=== PATIENT | male | born 1960 | race Caucasian/White ===

== ENCOUNTER 2019-12-31 08:08 | Outpatient (REF) | payer BC, SELFPAY ==
[2019-12-31 22:09] LABS: BUN 16 mg/dL (7-18); CREATININE 1.03 mg/dL (0.70-1.30); Calcium 8.9 mg/dL (8.5-10.1); Calculated LDL 93 mg/dL (<100); Chloride 104 mmol/L (98-107); Cholesterol 194 mg/dL (<200); Glucose 89 mg/dL (74-106); HDL Cholesterol 42 mg/dL (40-60); Potassium 4.6 mmol/L (3.5-5.1); Sodium 141 mmol/L (136-145); Triglyceride 299 mg/dL (<150)
== END 2019-12-31 08:28 ==
LOC: NCHCN 08:08
PROVIDERS: PCP Internal Medicine; Visit Provider Internal Medicine
DX: Z00.00 Encounter for general adult medical examination without abnormal findings (principal); E78.5 Hyperlipidemia, unspecified; E66.9 Obesity, unspecified; J44.9 Chronic obstructive pulmonary disease, unspecified
CPT/HCPCS: 80048; 80061

== ENCOUNTER 2020-02-12 17:18 | Outpatient (REF) | payer BC, SELFPAY ==
[2020-02-15 13:33] LABS: COVID-19 RT-PCR Result NEGATIVE (Negative)
== END 2020-02-12 17:38 ==
LOC: NCHCN 17:18
PROVIDERS: PCP Internal Medicine; Visit Provider Nurse Practitioner Family
DX: R09.81 Nasal congestion (principal)
CPT/HCPCS: U0003

== ENCOUNTER 2021-02-09 16:29 | Outpatient (REF) | payer BC, SELFPAY ==
[2021-02-11 11:24] LABS: COVID-19 RT-PCR UVMMC Result Negative (Negative)
== END 2021-02-09 16:30 | disposition home or self-care (01) ==
LOC: NCHCN 16:29
PROVIDERS: PCP Internal Medicine; Visit Provider Family Medicine
DX: Z20.822 Contact with and (suspected) exposure to COVID-19 (principal); R50.9 Fever, unspecified; R05.8 Other specified cough
CPT/HCPCS: U0003

== ENCOUNTER 2021-04-22 15:54 | Outpatient (REF) | payer BC, SELFPAY ==
[2021-04-22 21:58] LABS: ALT 35 U/L (16-63); AST 23 U/L (15-37); Albumin 4.1 g/dL (3.4-5.0); Alkaline Phosphatase 248 U/L (46-116); Anion Gap 10.5 mmol/L (3-11); BUN 25 mg/dL (7-18); Bilirubin, Total 0.2 mg/dL (0.2-1.0); CO2 25.5 mmol/L (21.0-32.0); CREATININE 0.9 mg/dL (0.70-1.30); Calcium 8.9 mg/dL (8.5-10.1); Chloride 106 mmol/L (98-107); Cholesterol 197 mg/dL (<200); Glucose 96 mg/dL (74-106); HDL Cholesterol 36 mg/dL (40-60); Potassium 4.3 mmol/L (3.5-5.1); Sodium 142 mmol/L (136-145); Total Protein 7.4 g/dL (6.4-8.2); Triglyceride 535 mg/dL (<150)
[2021-04-22 22:10] LABS: LDL CHOLESTEROL 98 mg/dL (<100)
[2021-04-22 22:18] LABS: Bilirubin, Direct 0.1 mg/dL (0.0-0.2)
[2021-04-23 18:29] LABS: PSA, Screening 0.3 ng/mL (0.0-4.5)
== END 2021-04-22 15:55 | disposition home or self-care (01) ==
LOC: NCHCN 15:54
PROVIDERS: PCP Internal Medicine; Visit Provider Internal Medicine
DX: E78.5 Hyperlipidemia, unspecified (principal); R03.0 Elevated blood-pressure reading, without diagnosis of hypertension; E66.9 Obesity, unspecified; Z12.5 Encounter for screening for malignant neoplasm of prostate; R73.03 Prediabetes
CPT/HCPCS: 80053; 80061; 80076; 83721; 84153; 83036

== ENCOUNTER 2021-05-01 16:26 | Outpatient (REF) | payer BC, SELFPAY ==
[2021-05-01 19:59] LABS: HCT 43.9 % (40.0-50.0); HGB 13.8 g/dL (13.5-17.5); MCH 26.5 pg (27.0-33.0); MCHC 31.4 % (32.0-36.0); MCV 84.3 fL (80-95); MPV 11.2 fL (8.0-11.0); Platelet Count 204 10^3/uL (130-400); RBC 5.21 10^6/uL (4.36-5.78); RDW 14.2 % (11.8-14.1); RDW-SD 43.4 fL; WBC 10.15 10^3/uL (4.4-10.8)
[2021-05-01 20:04] LABS: GGT 42 U/L (15-85)
[2021-05-04 10:45] LABS: Hepatitis C Ab w Rflx HCV PCR Negative (Negative)
[2021-05-04 11:21] LABS: HBs Antibody, Quant 22.7 mIU/mL (See Note); Hepatitis B Surface Ab Positive (See Note)
[2021-05-04 12:08] LABS: Hepatitis B Surface Ag Negative (Negative)
== END 2021-05-01 16:27 | disposition home or self-care (01) ==
LOC: NCHCN 16:26
PROVIDERS: PCP Internal Medicine; Visit Provider Internal Medicine
DX: R03.0 Elevated blood-pressure reading, without diagnosis of hypertension (principal); R74.8 Abnormal levels of other serum enzymes; Z00.00 Encounter for general adult medical examination without abnormal findings; Z13.818 Encounter for screening for other digestive system disorders; Z11.59 Encounter for screening for other viral diseases
CPT/HCPCS: 85027; 86706; 86803; 87340; 82977

== ENCOUNTER 2021-05-08 23:28 | Outpatient (REF) | payer BC, SELFPAY ==
[2021-05-11 01:59] LABS: Vitamin D 25 Total 14.5 ng/mL (30-100)
== END 2021-05-08 23:29 | disposition home or self-care (01) ==
LOC: NCHCN 23:28
PROVIDERS: PCP Internal Medicine; Visit Provider Family Medicine
DX: R74.8 Abnormal levels of other serum enzymes (principal)
CPT/HCPCS: 82306

== ENCOUNTER 2023-07-15 14:53 | Outpatient (REF) | payer BC, SELFPAY ==
[2023-07-15 14:26] LABS: Abs Immature Grans 0.02 10^3/uL (0.0-0.06); Absolute Basophil Count 0.06 10^3/uL (0.0-0.2); Absolute Eosinophil Count 0.22 10^3/uL (0.0-0.7); Absolute Monocyte Count 0.62 10^3/uL (0.1-0.8); Absolute Neutrophil Count 5.48 10^3/uL (1.2-6.7); Basophils % 0.7 %; Eosinophils % 2.6 %; HCT 41.7 % (40.0-50.0); HGB 13.3 g/dL (13.5-17.5); Immature Grans % 0.2 %; Lymphocytes % 23.8 %; MCH 27.2 pg (27.0-33.0); MCHC 31.9 % (32.0-36.0); MCV 85 fL (80-95); MPV 11.4 fL (8.0-11.0); Monocytes % 7.4 %; Neutrophils % 65.3 %; Platelet Count 158 10^3/uL (130-400); RBC 4.89 10^6/uL (4.36-5.78); RDW 13.4 % (11.8-14.1)
[2023-07-15 14:52] LABS: ALT 27 U/L (16-63); AST 21 U/L (15-37); Albumin 3.7 g/dL (3.4-5.0); Alkaline Phosphatase 148 U/L (46-116); Anion Gap 8.8 mmol/L (3-11); BUN 20 mg/dL (7-18); Bilirubin, Total 0.3 mg/dL (0.2-1.0); CO2 29.2 mmol/L (21.0-32.0); CREATININE 1.3 mg/dL (0.70-1.30); Chloride 105 mmol/L (98-107); Estimated GFR 61.35 (mL/min/1.73m2); Glucose 131 mg/dL (74-106); Sodium 143 mmol/L (136-145); TSH (W/Ref FT4) 2.36 uIU/mL (0.36-3.74); Total Protein 6.9 g/dL (6.4-8.2)
[2023-07-18 08:45] LABS: Ferritin 77 ng/mL (26-388)
== END 2023-07-15 14:54 | disposition home or self-care (01) ==
LOC: NCHCN 14:53
PROVIDERS: PCP Internal Medicine; Visit Provider Internal Medicine
DX: D64.9 Anemia, unspecified (principal); E78.5 Hyperlipidemia, unspecified; G47.19 Other hypersomnia; R74.8 Abnormal levels of other serum enzymes
CPT/HCPCS: 80053; 82728; 84443; 85025

== ENCOUNTER 2023-10-03 13:08 | Outpatient (REF) | payer BC, SELFPAY ==
[2023-10-03 14:46] LABS: HCT 44.8 % (40.0-50.0); HGB 14.2 g/dL (13.5-17.5); MCH 27.2 pg (27.0-33.0); MCHC 31.7 % (32.0-36.0); MCV 86 fL (80-95); MPV 11.2 fL (8.0-11.0); Platelet Count 174 10^3/uL (130-400); RBC 5.23 10^6/uL (4.36-5.78); RDW 14.3 % (11.8-14.1); RDW-SD 44.4 fL; WBC 7.45 10^3/uL (4.4-10.8)
[2023-10-03 14:47] LABS: Iron 77 ug/dL (65-175); Total Iron Binding Capacity 236 ug/dL (250-450); Transferrin Sat 33 % (20-55)
[2023-10-03 15:04] LABS: Hemoglobin A1C 6.1 % (<5.7)
[2023-10-03 15:14] LABS: Ferritin 81 ng/mL (26-388); Vitamin B12 501 pg/mL (193-986); Vitamin D 25 Total 23.8 ng/mL (30-100)
== END 2023-10-03 13:09 | disposition home or self-care (01) ==
LOC: NCHCN 13:08
PROVIDERS: PCP Internal Medicine; Visit Provider Internal Medicine
DX: D64.9 Anemia, unspecified (principal); E22.9 Hyperfunction of pituitary gland, unspecified; R73.03 Prediabetes; R68.89 Other general symptoms and signs
CPT/HCPCS: 82306; 85027; 82607; 82728; 83036; 83540; 83550

== ENCOUNTER 2024-01-06 12:55 | Outpatient (REF) | payer BC, SELFPAY ==
[2024-01-06 14:33] LABS: Hemoglobin A1C 5.9 % (<5.7)
[2024-01-06 14:54] LABS: Anion Gap 8.2 mmol/L (3-11); BUN 28 mg/dL (7-18); CO2 25.8 mmol/L (21.0-32.0); CREATININE 1.2 mg/dL (0.70-1.30); Calcium 8.9 mg/dL (8.5-10.1); Chloride 108 mmol/L (98-107); Estimated GFR 67.53 (mL/min/1.73m2); Glucose 97 mg/dL (74-106); Potassium 4.9 mmol/L (3.5-5.1); Sodium 142 mmol/L (136-145); Vitamin D 25 Total 20.7 ng/mL (30-100)
== END 2024-01-06 12:56 | disposition home or self-care (01) ==
LOC: NCHCN 12:55
PROVIDERS: PCP Internal Medicine; Visit Provider Internal Medicine
DX: R73.03 Prediabetes (principal); N18.9 Chronic kidney disease, unspecified; E55.9 Vitamin D deficiency, unspecified
CPT/HCPCS: 80048; 82306; 83036

== ENCOUNTER 2024-04-12 20:08 | Outpatient (REF) | payer MEDICARE, SELFPAY ==
[2024-04-12 22:13] LABS: Vitamin D 25 Total 23.6 ng/mL (30-100)
[2024-04-13 21:46] LABS: PSA, Screening 0.5 ng/mL (<=4.5)
== END 2024-04-12 20:09 | disposition home or self-care (01) ==
LOC: NCHCN 20:08
PROVIDERS: PCP Internal Medicine; Visit Provider Internal Medicine
DX: E55.9 Vitamin D deficiency, unspecified (principal); N40.0 Benign prostatic hyperplasia without lower urinary tract symptoms
CPT/HCPCS: 82306; 84153

== ENCOUNTER 2025-01-11 16:34 | Outpatient (REF) | payer MEDICARE, SELFPAY ==
[2025-01-11 16:59] LABS: Hemoglobin A1C 6.1 % (<5.7)
[2025-01-11 17:20] LABS: Anion Gap 7.4 mmol/L (3-11); BUN 18 mg/dL (7-18); CO2 28.6 mmol/L (21.0-32.0); Calcium 9.0 mg/dL (8.5-10.1); Chloride 102 mmol/L (98-107); Cholesterol 184 mg/dL (<200); Glucose 94 mg/dL (74-106); HDL Cholesterol 50 mg/dL (>or=40); Potassium 4.3 mmol/L (3.5-5.1); Sodium 138 mmol/L (136-145); Vitamin D 25 Total 30 ng/mL (30-100)
== END 2025-01-11 16:35 | disposition home or self-care (01) ==
LOC: NCHCN 16:34
PROVIDERS: PCP Internal Medicine; Visit Provider Internal Medicine
DX: E55.9 Vitamin D deficiency, unspecified (principal); E78.5 Hyperlipidemia, unspecified; N18.9 Chronic kidney disease, unspecified; R73.03 Prediabetes
CPT/HCPCS: 80048; 80061; 82306; 83036